=== PATIENT | female | born 1995 | race Caucasian/White ===

== ENCOUNTER 2017-08-24 23:40 | Emergency (ER) | payer OTHER, MEDICAID ==
[~2017-08-24] VITALS: Ht 165.1 cm; Wt 76.2 kg
[~2017-08-24 23:40] MED LIST: ACETAMINOPHEN-1 EAC1 PO; AMOXICILLIN 50500 MG PO; DEPAKOTE ER500 MG PO; NAPROSYN500 MG PO; NEXPLANON68 MG SQ; TRAZODONE HCL100 MG PO
[2017-08-24 23:50] VITALS: BP 135/76
[2017-08-24] MEDS ORDERED: NAPROSYN500 MG PO (23:58)
[2017-08-24] MEDS ORDERED: DOXYCYCLINE MO100 M1 PO (23:58)
[2017-08-24] MEDS ORDERED: TRAMADOL 50 MG50 MG PO (23:58)
== END 2017-08-25 00:11 | disposition home or self-care (01) ==
LOC: M.ERS 23:40
DX: L05.01 Pilonidal cyst with abscess (principal); Z88.8 Allergy status to other drugs, medicaments and biological substances; Z88.1 Allergy status to other antibiotic agents

== ENCOUNTER 2020-12-03 18:08 | Emergency (ER) | payer OTHER, MEDICAID ==
[~2020-12-03] VITALS: Ht 165.1 cm; Wt 72.6 kg
[~2020-12-03 18:08] MED LIST changes: +DOXYCYCLINE MO100 M1 PO; +TRAMADOL 50 MG50 MG PO
[2020-12-03] MEDS ORDERED: NEXIUM 40 MG CA40 M1 PO (18:19)
[2020-12-03] MEDS ORDERED: BACTRIM DS TAB1 EAC1 PO (18:31)
[2020-12-03 18:56] VITALS: BP 125/64
== END 2020-12-03 18:57 | disposition home or self-care (01) ==
LOC: M.ERS 18:08
DX: L05.01 Pilonidal cyst with abscess (principal); Z79.899 Other long term (current) drug therapy; Z88.8 Allergy status to other drugs, medicaments and biological substances; Z88.1 Allergy status to other antibiotic agents; Z91.040 Latex allergy status